=== PATIENT | female | born 1955 | race Two or more races ===

== ENCOUNTER → 2017-09-21 | Outpatient (CLI) | payer OTHER ==
[2017-09-21 07:48] LABS: Basophils # (auto) 0.1 uL; Basophils % (auto) 1.4 % (0.0-2.0); Eosinophils # (auto) 0.3 uL; Eosinophils % (auto) 6.5 % (0.0-7.0); Hematocrit 42.3 % (36.0-46.0); Hemoglobin 13.9 g/dL (12.2-16.2); Lymphocytes # (auto) 2.1 uL; Lymphocytes % (auto) 48.4 % (10.0-50.0); Mean Corpuscular Hemoglobin 28.5 pg (28.0-32.0); Mean Corpuscular Hgb Conc. 32.9 g/dL (32.0-36.0); Mean Corpuscular Volume 86.8 fL (80.0-100.0); Monocytes # (auto) 0.4 uL; Monocytes % (auto) 9.2 % (0.0-12.0); Neutrophils # (auto) 1.5 uL; Neutrophils % (auto) 34.5 % (37.0-80.0); Nucleated Red Blood Cells % 0.1 %; Platelet Count (auto) 286 10^3/uL (140-450); Red Blood Cells 4.88 10^6/uL (4.0-5.20); White Blood Cell 4.3 10^3/uL (4.4-10.8)
[2017-09-21 08:02] LABS: Albumin 3.6 g/dL (3.4-5.0); BUN/Creatinine Ratio 11.5; Bilirubin, Total 0.4 mg/dL (0.2-1.0); Calcium 8.8 mg/dL (8.5-10.1); Potassium 3.8 mmol/L (3.5-5.1); Total Protein 7.9 g/dL (6.4-8.2)
[2017-09-21 09:47] LABS: Urine Bacteria NONE SEEN /hpf (None Seen); Urine Blood TRACE /uL (Negative); Urine Mucus FEW (None Seen); Urine Specific Gravity 1.011 (1.001-1.035); Urine WBC 13 /hpf (0 - 5)
== END | disposition home or self-care (01) ==
LOC: LAB 07:21
PROVIDERS: ATTEND Family Medicine
DX: Z00.01 Encounter for general adult medical examination with abnormal findings (principal); F32.9 Major depressive disorder, single episode, unspecified; F41.9 Anxiety disorder, unspecified; R07.89 Other chest pain
CPT/HCPCS: 36415; 80053; 80061; 81001; 82306; 84443; 85025

== ENCOUNTER 2018-04-15 12:23 | Observation (INO) | payer OTHER ==
[~2018-04-15] VITALS: Ht 152.4 cm; Wt 68.0 kg
[2018-04-15 13:25] LABS: Basophils # (auto) 0.1 uL; Basophils % (auto) 0.5 % (0.0-2.0); Eosinophils # (auto) 0.2 uL; Eosinophils % (auto) 1.6 % (0.0-7.0); Hematocrit 41.4 % (36.0-46.0); Hemoglobin 13.3 g/dL (12.2-16.2); Lymphocytes # (auto) 1.7 uL; Lymphocytes % (auto) 13.8 % (10.0-50.0); Mean Corpuscular Hgb Conc. 32.1 g/dL (32.0-36.0); Mean Corpuscular Volume 87.2 fL (80.0-100.0); Monocytes # (auto) 0.5 uL; Monocytes % (auto) 4.4 % (0.0-12.0); Neutrophils # (auto) 9.7 uL; Neutrophils % (auto) 79.7 % (37.0-80.0); Platelet Count (auto) 314 10^3/uL (140-450); Red Blood Cells 4.75 10^6/uL (4.0-5.20); Red Cell Distribution Width 14.4 % (11.8-14.3); White Blood Cell 12.2 10^3/uL (4.4-10.8)
[2018-04-15 13:43] LABS: Alanine Aminotransferase 48 U/L (13-56); Albumin 3.4 g/dL (3.4-5.0); Anion Gap 9 (5-15); Aspartate Aminotransferase 53 U/L (15-37); BUN/Creatinine Ratio 14.9; Blood Urea Nitrogen 11 mg/dL (7-18); Calcium 8.1 mg/dL (8.5-10.1); Carbon Dioxide 27 mmol/L (21-32); Chloride 103 mmol/L (98-107); GFR African American 103 mL/min; GFR Non-African American 85 mL/min; Glucose 144 mg/dL (74-106); Magnesium 2.4 mg/dL (1.6-2.6); Potassium 4.3 mmol/L (3.5-5.1); Sodium 139 mmol/L (136-145)
[2018-04-15 13:47] LABS: Alkaline Phosphatase 107 U/L (45-117); Bilirubin, Total 0.3 mg/dL (0.2-1.0); Total Protein 7.5 g/dL (6.4-8.2)
[2018-04-15] MEDS ORDERED: SODIUM CHLORIDE 0.9% 1,000 ML IVB ONE (13:57)
[2018-04-15] MEDS ORDERED: KETOROLAC TROMETH 30 MG/ML 1ML VIAL IV ONE (14:00)
[2018-04-15] MEDS ORDERED: PROMETHAZINE HCL 25 MG/ML 1ML IV PRN (14:00)
[2018-04-15 17:11] LABS: Urine Bacteria MOD /hpf (None Seen); Urine Blood Negative /uL (Negative); Urine WBC 17 /hpf (0 - 5)
[2018-04-15] MEDS ORDERED: cefTRIAXone 1GM/10ml IVPUSH 10 ML IV ONE (18:45)
[2018-04-15] MEDS ORDERED: PANTOPRAZOLE 40 MG TAB PO ONE (18:45)
[2018-04-15 18:55] VITALS: BP 129/80
== END 2018-04-15 18:57 | disposition home or self-care (01) | DRG 690 ==
LOC: ER 12:23 → OVERFLOW 13:58 → ER 18:57
PROVIDERS: ADMIT Family Medicine; ATTEND Family Medicine
DX: N39.0 Urinary tract infection, site not specified (principal); K29.70 Gastritis, unspecified, without bleeding; F32.9 Major depressive disorder, single episode, unspecified
CPT/HCPCS: 36415; 74176; 80053; 81001; 83735; 84484; 85025; 93005; 96374; 96375; 99285; G0378; J0696; J1885; J2550

== ENCOUNTER 2018-09-20 11:46 | Inpatient (IN) | payer OTHER ==
[~2018-09-20] VITALS: Ht 144.8 cm; Wt 72.0 kg
[2018-09-20] MEDS ORDERED: SODIUM CHLORIDE 0.9% 500 ML IVB ONE (11:56)
[2018-09-20] MEDS ORDERED: PANTOPRAZOLE 40 MG/10 ML VIAL IV STA (11:56)
[2018-09-20] MEDS ORDERED: ONDANSETRON HCL 4 MG/2 ML VIAL IV ONE (12:00)
[2018-09-20] MEDS ORDERED: HYDROmorphone HCL 2 MG/ML VL IV ONE (12:00)
[2018-09-20 13:16] LABS: Basophils # (auto) 0 uL; Basophils % (auto) 0.3 % (0.0-2.0); Eosinophils # (auto) 0.1 uL; Eosinophils % (auto) 0.4 % (0.0-7.0); Hematocrit 40.8 % (36.0-46.0); Hemoglobin 13.8 g/dL (12.2-16.2); Lymphocytes # (auto) 0.7 uL; Lymphocytes % (auto) 5.2 % (10.0-50.0); Mean Corpuscular Hemoglobin 29.3 pg (28.0-32.0); Mean Corpuscular Hgb Conc. 33.9 g/dL (32.0-36.0); Mean Corpuscular Volume 86.3 fL (80.0-100.0); Monocytes # (auto) 0.4 uL; Monocytes % (auto) 2.9 % (0.0-12.0); Neutrophils # (auto) 11.9 uL; Neutrophils % (auto) 91.2 % (37.0-80.0); Nucleated Red Blood Cells % 0.1 %; Platelet Count (auto) 289 10^3/uL (140-450); Red Blood Cells 4.73 10^6/uL (4.0-5.20); Red Cell Distribution Width 14.2 % (11.8-14.3)
[2018-09-20 13:35] LABS: INR 0.99 (0.9-1.15); Partial Thromboplastin Time 25.6 sec (23.78-33.04); Prothrombin Time 10.6 sec (9.27-12.13)
[2018-09-20 13:36] LABS: Potassium 4.4 mmol/L (3.5-5.1)
[2018-09-20 13:42] LABS: Albumin 3.5 g/dL (3.4-5.0); BUN/Creatinine Ratio 16.7; Bilirubin, Total 0.4 mg/dL (0.2-1.0); Calcium 8.4 mg/dL (8.5-10.1); Total Protein 7.6 g/dL (6.4-8.2)
[2018-09-20] MEDS ORDERED: NITROGLYCERIN 0.4 MG SL TAB SL PRN (14:45)
[2018-09-20] MEDS ORDERED: MORPHINE SULFATE 4 MG/ML SYR/VIAL IV PRN ×2 (14:45→15:00)
[2018-09-20] MEDS: SODIUM CHLORIDE 0.9% 1,000 ML IV SCH ×2 (14:55→23:20)
[2018-09-20] MEDS ORDERED: ACETAMINOPHEN 500 MG TAB PO PRN (15:00)
[2018-09-20] MEDS ORDERED: LORazepam 0.5 MG TAB PO PRN (15:00)
[2018-09-20] MEDS ORDERED: DEXTROSE (50%) 50ML SYRG IV PRN (15:00)
[2018-09-20] MEDS ORDERED: traMADol HCL 50 MG TAB PO PRN (15:00)
[2018-09-20] MEDS ORDERED: cefTRIAXone 1GM/50ML D5W 50 ML IV ONE (15:00)
[2018-09-20] MEDS: FAMOTIDINE (10MG/ML) 2ML VL IV SCH ×2 (15:56→22:28)
[2018-09-20] MEDS: metroNIDAZOLE 500MG/100ML 100 ML IV SCH ×2 (19:01→23:18)
[2018-09-20] MEDS: ACCU-CHEK COMFORT CURVE STRIP VI SCH ×2 (19:01→23:24)
--- NOTE | 2018-09-20 20:10 | NUR ---
Telemetry admit from GILBERTO VAZQUEZKATHERIN admitted to Telemetry unit after SBAR received. Patient oriented to Allison restrepo RN, unit, room, bed, and unit policies regarding patient care and visiting hours. Patient now on continuous telemetry monitoring, tele box # HC 8 and telemetry reading on arrival to unit is SR72. Patient placed on bedside oxygen, weighed by bedscale and encouraged to call if they need something. Currently no c/o pain or any other discomfort, call light within reach. All questions and concerns addressed, patient verbalized understanding. cont care
[2018-09-20 20:59] VITALS: BP 136/81
[2018-09-20] MEDS ORDERED: DULO60CA90 PO (21:35)
[2018-09-20] MEDS ORDERED: ZOLP5TAB5 PO (21:35)
[2018-09-20] MEDS ORDERED: OMEP20TA PO (21:35)
[2018-09-20] MEDS ORDERED: ALPR0.254 PO (21:35)
[2018-09-20] MEDS ORDERED: QUET100T46 PO (21:35)
[2018-09-20 22:00] VITALS: BP 136/81
--- NOTE | 2018-09-20 23:24 | NUR ---
BS 97
--- NOTE | 2018-09-21 03:30 | NUR ---
PT CARE ENDORSED TO KEVIN PT CURRENTLY SLEEPING, SLEEPING, BREATHING EVEN AND UNLABORED, NO DISTRESS NOTED
--- NOTE | 2018-09-21 03:33 | NUR ---
Opening Shift Note Assumed care of patient, awake and alert. No S/S of distress/SOB or pain. Instructed on POC and to call for assist PRN, will continue to monitor for changes Q1hr and PRN.
[2018-09-21] MEDS: SODIUM CHLORIDE 0.9% 1,000 ML IV SCH (04:40)
[2018-09-21] MEDS: ACCU-CHEK COMFORT CURVE STRIP VI SCH ×2 (05:58→11:52)
[2018-09-21] MEDS: metroNIDAZOLE 500MG/100ML 100 ML IV SCH ×4 (05:58→23:56)
[2018-09-21 06:16] VITALS: BP 131/70
[2018-09-21 06:21] LABS: Basophils # (auto) 0.1 uL; Basophils % (auto) 1.3 % (0.0-2.0); Eosinophils # (auto) 0.2 uL; Eosinophils % (auto) 4.4 % (0.0-7.0); Hematocrit 39.4 % (36.0-46.0); Hemoglobin 13.2 g/dL (12.2-16.2); Lymphocytes # (auto) 1.3 uL; Lymphocytes % (auto) 24.2 % (10.0-50.0); Mean Corpuscular Hemoglobin 28.8 pg (28.0-32.0); Mean Corpuscular Hgb Conc. 33.4 g/dL (32.0-36.0); Mean Corpuscular Volume 86.1 fL (80.0-100.0); Monocytes # (auto) 0.5 uL; Monocytes % (auto) 8.2 % (0.0-12.0); Neutrophils # (auto) 3.4 uL; Neutrophils % (auto) 61.9 % (37.0-80.0); Nucleated Red Blood Cells % 0.1 %; Platelet Count (auto) 269 10^3/uL (140-450); Red Blood Cells 4.57 10^6/uL (4.0-5.20); Red Cell Distribution Width 13.7 % (11.8-14.3); White Blood Cell 5.5 10^3/uL (4.4-10.8)
[2018-09-21 06:40] LABS: Potassium 3.6 mmol/L (3.5-5.1)
[2018-09-21 06:48] LABS: Albumin 3.1 g/dL (3.4-5.0); BUN/Creatinine Ratio 13.8; Bilirubin, Total 0.3 mg/dL (0.2-1.0); Calcium 7.9 mg/dL (8.5-10.1); Total Protein 6.9 g/dL (6.4-8.2)
[2018-09-21] MEDS: PROMETHAZINE HCL 25 MG/ML 1ML IV PRN ×3 (06:59→18:59)
[2018-09-21 08:00] VITALS: BP 131/70
[2018-09-21] MEDS: cefTRIAXone 1GM/50ML D5W 50 ML IV SCH (08:16)
[2018-09-21 09:00] VITALS: BP 130/68
--- NOTE | 2018-09-21 09:10 | NUR ---
patient off floor for hyda scan
[2018-09-21] MEDS: FAMOTIDINE (10MG/ML) 2ML VL IV SCH ×2 (10:00→23:56)
[2018-09-21] MEDS ORDERED: INFLUENZA QUAD 2018-2019 0.5 ML SYRG IM ONE (12:45)
[2018-09-21] MEDS ORDERED: PNEUMOCOCCAL VACC POLYS 25 MCG/0.5 ML VIAL IM ONE (12:45)
[2018-09-21] MEDS ORDERED: PANT40TA2 PO (12:52)
[2018-09-21] MEDS ORDERED: METR500T14 PO (12:52)
[2018-09-21] MEDS ORDERED: CEPH-37 PO (12:52)
[2018-09-21 13:00] VITALS: BP 135/61
[2018-09-21] MEDS ORDERED: ALPRAZolam 0.5 MG TAB PO PRN (15:00)
[2018-09-21 16:16] VITALS: BP 124/63
[2018-09-21 17:25] LABS: Urine Bacteria NONE SEEN /hpf (None Seen); Urine Blood Negative /uL (Negative); Urine Specific Gravity 1.014 (1.001-1.035); Urine WBC 1 /hpf (0 - 5)
--- NOTE | 2018-09-21 18:40 | NUR ---
TWO UNSUCCESSFUL ATTEMPTS FOR IV PATIENT NEEDS 20 G FOR CARDIOLITE STRESS TEST WILL ENDORSE TO JESUS ALBERTO PARKS.
--- NOTE | 2018-09-21 19:35 | NUR ---
Opening Shift Note Assumed care of patient, awake and alert x4. Family at bedside. No S/S of distress/SOB or pain. Reports decreased nausea after Phenergan administration by dayscresencioft RN. Through licensed massage therapist, instructed on POC and to call for assist PRN, will continue to monitor for changes Q1hr and PRN. Bed in lowest locked position, side rails up x2, call light within reach.
[2018-09-21 22:00] VITALS: BP 139/75
[2018-09-21] MEDS: QUEtiapine FUMARATE 100 MG TAB PO SCH (23:56)
[2018-09-21] MEDS: ATORVASTATIN 20 MG TAB PO SCH (23:56)
--- NOTE | 2018-09-22 01:30 | NUR ---
IV insertion IV access obtained, via clean sterile technique by inserting 20 gauge catheter at left ac after two attempts. IV secured properly. No trauma to site. Patient tolerated well. 20 gauge to right ac remains clean, dry, intact, and patent. Will continue to monitor.
[2018-09-22 04:55] VITALS: BP 139/70
[2018-09-22 06:15] LABS: Basophils # (auto) 0 uL; Basophils % (auto) 1.1 % (0.0-2.0); Eosinophils # (auto) 0.2 uL; Eosinophils % (auto) 4.4 % (0.0-7.0); Hematocrit 39.4 % (36.0-46.0); Hemoglobin 13.3 g/dL (12.2-16.2); Lymphocytes # (auto) 1.6 uL; Lymphocytes % (auto) 37.1 % (10.0-50.0); Mean Corpuscular Hemoglobin 28.8 pg (28.0-32.0); Mean Corpuscular Hgb Conc. 33.6 g/dL (32.0-36.0); Mean Corpuscular Volume 85.7 fL (80.0-100.0); Monocytes # (auto) 0.4 uL; Monocytes % (auto) 8.6 % (0.0-12.0); Neutrophils # (auto) 2.2 uL; Neutrophils % (auto) 48.8 % (37.0-80.0); Nucleated Red Blood Cells % 0.1 %; Platelet Count (auto) 271 10^3/uL (140-450); Red Cell Distribution Width 14.1 % (11.8-14.3); White Blood Cell 4.5 10^3/uL (4.4-10.8)
[2018-09-22 06:17] LABS: Albumin 3.2 g/dL (3.4-5.0); Calcium 8.1 mg/dL (8.5-10.1); Potassium 3.4 mmol/L (3.5-5.1)
[2018-09-22 06:21] LABS: BUN/Creatinine Ratio 14.9; Bilirubin, Total 0.4 mg/dL (0.2-1.0); Total Protein 6.9 g/dL (6.4-8.2)
--- NOTE | 2018-09-22 06:50 | NUR ---
Closing Note Patient lying in bed, eyes closed, respirations even and unlabored, appears asleep. No s/s of distress. Care endorsed to dayshift RN.
[2018-09-22] MEDS: metroNIDAZOLE 500MG/100ML 100 ML IV SCH ×3 (07:04→17:22)
[2018-09-22] MEDS ORDERED: POTASSIUM CHL 20 Meq TABLET PO ONE (07:45)
[2018-09-22 09:39] VITALS: BP 150/74
[2018-09-22] MEDS: cefTRIAXone 1GM/50ML D5W 50 ML IV SCH (09:43)
[2018-09-22] MEDS: FAMOTIDINE (10MG/ML) 2ML VL IV SCH ×2 (09:44→21:56)
[2018-09-22] MEDS: HYDROcodone-ACET 5/325MG TAB PO PRN ×2 (12:11→17:22)
[2018-09-22 13:00] VITALS: BP 141/63
[2018-09-22] MEDS: guaiFENesin-DM 100/10mg/5ml SYR PO PRN (14:45)
[2018-09-22 17:55] VITALS: BP 132/71
--- NOTE | 2018-09-22 19:30 | NUR ---
Opening Shift Note Assumed care of patient, awake and alert x4. Family at bedside. No S/S of distress/SOB or pain. Through sample carrier, instructed on POC and to call for assist PRN, will continue to monitor for changes Q1hr and PRN. Bed in lowest locked position, side rails up x2, call light within reach.
[2018-09-22 21:39] VITALS: BP 125/66
[2018-09-22] MEDS: TEMAZEPAM 15 MG CAP PO PRN (21:56)
[2018-09-22] MEDS: QUEtiapine FUMARATE 100 MG TAB PO SCH (21:56)
[2018-09-22] MEDS: ATORVASTATIN 20 MG TAB PO SCH (21:56)
[2018-09-23] MEDS: metroNIDAZOLE 500MG/100ML 100 ML IV SCH ×5 (00:20→23:15)
[2018-09-23 04:55] VITALS: BP 112/69
--- NOTE | 2018-09-23 07:27 | NUR ---
Closing Note Patient lying in bed, eyes closed, respirations even and unlabored, appears asleep. No s/s of distress. Care endorsed to dayshift RN.
[2018-09-23 09:00] VITALS: BP 130/67
[2018-09-23] MEDS: FAMOTIDINE (10MG/ML) 2ML VL IV SCH ×2 (10:33→21:21)
[2018-09-23] MEDS: cefTRIAXone 1GM/50ML D5W 50 ML IV SCH (10:36)
[2018-09-23 13:00] VITALS: BP 136/83
[2018-09-23 18:12] VITALS: BP 139/80
--- NOTE | 2018-09-23 19:20 | NUR ---
Opening Shift Note Assumed care of patient, awake and alert x4. Family at bedside. No S/S of distress/SOB or pain. Through aeronautical engineer, instructed on POC and to call for assist PRN, will continue to monitor for changes Q1hr and PRN. Bed in lowest locked position, side rails up x2, call light within reach.
[2018-09-23] MEDS: ATORVASTATIN 20 MG TAB PO SCH (21:23)
[2018-09-23] MEDS: QUEtiapine FUMARATE 100 MG TAB PO SCH (21:23)
[2018-09-23 22:00] VITALS: BP 125/68
[2018-09-23] MEDS: TEMAZEPAM 15 MG CAP PO PRN (23:15)
[2018-09-24 04:56] VITALS: BP 125/68
[2018-09-24] MEDS: metroNIDAZOLE 500MG/100ML 100 ML IV SCH (05:54)
--- NOTE | 2018-09-24 07:25 | NUR ---
Closing Note Patient lying in bed, eyes closed, respirations even and unlabored, appears asleep. No s/s of distress. Care endorsed to dayshift RN.
[2018-09-24] MEDS ORDERED: ADENOSINE 60 MG in GIVE UN-DILUTED 0 ML IV STA (08:26)
[2018-09-24 09:00] VITALS: BP 133/77
--- NOTE | 2018-09-24 09:10 | NUR ---
patient off floor for stress test
[2018-09-24 09:24] VITALS: BP 150/77
[2018-09-24] MEDS ORDERED: DULoxetine HCL 30 MG CAP PO SCH (10:00)
[2018-09-24] MEDS: FAMOTIDINE (10MG/ML) 2ML VL IV SCH (10:30)
[2018-09-24] MEDS: cefTRIAXone 1GM/50ML D5W 50 ML IV SCH (10:31)
[2018-09-24] MEDS ORDERED: ASPI81CH43 PO (11:48)
[2018-09-24] MEDS ORDERED: ATOR20TA50 PO (11:48)
[2018-09-24] MEDS ORDERED: ATEN-60 PO (11:49)
[2018-09-24] MEDS: guaiFENesin-DM 100/10mg/5ml SYR PO PRN (12:40)
[2018-09-24 13:00] VITALS: BP 138/76
--- NOTE | 2018-09-24 16:50 | NUR ---
DR. OJEDA GAVE CARDIO CLEARANCE FOR DISCHARGE.
[2018-09-24 17:00] VITALS: BP 143/69
--- NOTE | 2018-09-24 17:59 | NUR ---
Discharge instructions given as ordered. Encourage to follow up with PMD as instructed. All questions and concerns addressed. Patient verbalized understanding. Medication reconciliation form completed and copy given to patient. Home medications held in Pharmacy returned to patient. IV removed with catheter intact, pressure dressing applied. Telemetry unit returned to ICU. Patient taken to vehicle via wheelchair with all personal belongings, accompanied by staff and family member. No distress noted at time of departure.
== END 2018-09-24 17:59 | disposition home or self-care (01) | DRG 446 ==
LOC: ER 11:48 → TELE 14:46 → TELE-WESTW 20:10
PROVIDERS: ADMIT Internal Medicine; ATTEND Internal Medicine
DX: K80.20 Calculus of gallbladder without cholecystitis without obstruction (principal); E78.5 Hyperlipidemia, unspecified; F20.9 Schizophrenia, unspecified; F32.9 Major depressive disorder, single episode, unspecified; F41.9 Anxiety disorder, unspecified; H91.90 Unspecified hearing loss, unspecified ear; I10 Essential (primary) hypertension; I25.10 Atherosclerotic heart disease of native coronary artery without angina pectoris; Z23 Encounter for immunization; Z87.440 Personal history of urinary (tract) infections
CPT/HCPCS: 36415; 71045; 74176; 76705; 78226; 78452; 80053; 80061; 81001; 82150; 82550; 82962; 83036; 83690; 84443; 84484; 85025; 85379; 85610; 85652; 85730; 86141; 87086; 93005; 93017; 93306; 94761; 96361; 96365; 96375; C9113; G0378; J0153; J0696; J2405; J3490

== ENCOUNTER → 2018-12-19 | Day surgery (SDC) | payer OTHER ==
[2018-12-17 11:51] LABS: Basophils # (auto) 0.1 uL; Basophils % (auto) 1.2 % (0.0-2.0); Eosinophils # (auto) 0.1 uL; Eosinophils % (auto) 2.8 % (0.0-7.0); Hematocrit 40.1 % (36.0-46.0); Hemoglobin 13.5 g/dL (12.2-16.2); Lymphocytes # (auto) 1.4 uL; Lymphocytes % (auto) 29.7 % (10.0-50.0); Mean Corpuscular Hemoglobin 29.5 pg (28.0-32.0); Mean Corpuscular Hgb Conc. 33.7 g/dL (32.0-36.0); Mean Corpuscular Volume 87.3 fL (80.0-100.0); Monocytes # (auto) 0.4 uL; Monocytes % (auto) 7.8 % (0.0-12.0); Neutrophils # (auto) 2.8 uL; Neutrophils % (auto) 58.5 % (37.0-80.0); Platelet Count (auto) 269 10^3/uL (140-450); Red Cell Distribution Width 14.3 % (11.8-14.3); White Blood Cell 4.8 10^3/uL (4.4-10.8)
[2018-12-17 12:05] LABS: INR 0.98 (0.9-1.15); Partial Thromboplastin Time 29.3 sec (23.78-33.04); Prothrombin Time 10.5 sec (9.27-12.13)
[2018-12-17 12:40] LABS: Potassium 4.2 mmol/L (3.5-5.1)
[2018-12-17 12:48] LABS: Urine Bacteria NONE SEEN /hpf (None Seen); Urine Blood TRACE /uL (Negative); Urine Specific Gravity 1.005 (1.001-1.035); Urine WBC 2 /hpf (0 - 5)
[2018-12-17 12:52] LABS: Albumin 3.4 g/dL (3.4-5.0); BUN/Creatinine Ratio 21.1; Bilirubin, Total 0.3 mg/dL (0.2-1.0); Calcium 8.9 mg/dL (8.5-10.1); Total Protein 7.5 g/dL (6.4-8.2)
[~2018-12-19] VITALS: Ht 149.9 cm; Wt 68.9 kg
[~2018-12-19] MED LIST: ALPR0.254 PO; ASPI81CH43 PO; ATEN-60 PO; ATOR20TA50 PO; DULO60CA90 PO; DexAMETHasone SOD PHOS 10MG/1ML VIAL INJ ONE; GLYCOPYRROLATE 0.2 MG/ML 1ML VIAL ONE; HYDROmorphone HCL 2 MG/ML VL IV PRN; KETOROLAC TROMETH 30 MG/ML 1ML VIAL IV ONE; KETOROLAC TROMETH 30 MG/ML 1ML VIAL ONE; LABETALOL HCL 5 MG/ML 4ML SYRINGE IV PRN; MEPERIDINE HCL (25 MG/ML) 1ML VIAL ONE; MIDAZOLAM HCL 1MG/1ML-2 ML VIAL IV PRN; MIDAZOLAM HCL 1MG/1ML-2 ML VIAL ONE; MORPHINE SULFATE 4 MG/ML SYR/VIAL IV ONE; MORPHINE SULFATE 4 MG/ML SYR/VIAL IV PRN; NEOSTIGMINE 1 MG/ML INJ (10mg/10ML VIAL) ONE; OMEP20TA PO; ONDANSETRON HCL 4 MG/2 ML VIAL IV ONE; ONDANSETRON HCL 4 MG/2 ML VIAL ONE; PANT40TA2 PO; POVIDONE IODINE 10 % TOPICAL OINT 30GM TOP ONE; PROPOFOL 10 MG/ML 20 ML IV ONE; QUET100T46 PO; ROCURONIUM 10MG/ML 10ML VIAL IV ONE; SUCCINYLCHOLINE CHLORIDE 20 MG/ML 10ML VIAL IV ONE; ZOLP5TAB5 PO; ceFAZolin 1GM/50ML 50 ML IV ONE; ePHEDrine SULFATE 50 MG/ML AMP IV PRN; fentaNYL CITRATE 100 MCG/2 ML VL ONE; hydrALAZINE HCL 20 MG/ML VL IV PRN
[2018-12-19 13:42] VITALS: BP 119/65
== END | disposition home or self-care (01) ==
LOC: SUR 08:50
PROVIDERS: ATTEND Surgery
DX: K80.10 Calculus of gallbladder with chronic cholecystitis without obstruction (principal); E66.9 Obesity, unspecified; F32.9 Major depressive disorder, single episode, unspecified; F41.9 Anxiety disorder, unspecified; F20.9 Schizophrenia, unspecified; K21.9 Gastro-esophageal reflux disease without esophagitis; I10 Essential (primary) hypertension
CPT/HCPCS: 36415; 47562; 80053; 81001; 85025; 85610; 85730; 86850; 86900; 86901; J0330; J0690; J1100; J1170; J1885; J2175; J2250; J2405; J2704; J3010; A6257

== ENCOUNTER → 2019-10-04 | Outpatient (CLI) | payer OTHER ==
[~2019-10-04] MED LIST changes: -DexAMETHasone SOD PHOS 10MG/1ML VIAL INJ ONE; -GLYCOPYRROLATE 0.2 MG/ML 1ML VIAL ONE; -HYDROmorphone HCL 2 MG/ML VL IV PRN; -KETOROLAC TROMETH 30 MG/ML 1ML VIAL IV ONE; -KETOROLAC TROMETH 30 MG/ML 1ML VIAL ONE; -LABETALOL HCL 5 MG/ML 4ML SYRINGE IV PRN; -MEPERIDINE HCL (25 MG/ML) 1ML VIAL ONE; -MIDAZOLAM HCL 1MG/1ML-2 ML VIAL IV PRN; -MIDAZOLAM HCL 1MG/1ML-2 ML VIAL ONE; -MORPHINE SULFATE 4 MG/ML SYR/VIAL IV ONE; -MORPHINE SULFATE 4 MG/ML SYR/VIAL IV PRN; -NEOSTIGMINE 1 MG/ML INJ (10mg/10ML VIAL) ONE; -ONDANSETRON HCL 4 MG/2 ML VIAL IV ONE; -ONDANSETRON HCL 4 MG/2 ML VIAL ONE; -POVIDONE IODINE 10 % TOPICAL OINT 30GM TOP ONE; -PROPOFOL 10 MG/ML 20 ML IV ONE; -ROCURONIUM 10MG/ML 10ML VIAL IV ONE; -SUCCINYLCHOLINE CHLORIDE 20 MG/ML 10ML VIAL IV ONE; -ceFAZolin 1GM/50ML 50 ML IV ONE; -ePHEDrine SULFATE 50 MG/ML AMP IV PRN; -fentaNYL CITRATE 100 MCG/2 ML VL ONE; -hydrALAZINE HCL 20 MG/ML VL IV PRN
[2019-10-04 10:32] LABS: Urine WBC None Seen /hpf (0 - 5)
[2019-10-04 10:44] LABS: Basophils # (auto) 0.1 uL; Basophils % (auto) 1.5 % (0.0-2.0); Eosinophils # (auto) 0.3 uL; Eosinophils % (auto) 6.9 % (0.0-7.0); Hematocrit 43.2 % (36.0-46.0); Hemoglobin 14.4 g/dL (12.2-16.2); Lymphocytes # (auto) 1.5 uL; Lymphocytes % (auto) 36.6 % (10.0-50.0); Mean Corpuscular Hemoglobin 29.4 pg (28.0-32.0); Mean Corpuscular Hgb Conc. 33.5 g/dL (32.0-36.0); Mean Corpuscular Volume 87.9 fL (80.0-100.0); Monocytes # (auto) 0.4 uL; Monocytes % (auto) 9.2 % (0.0-12.0); Neutrophils # (auto) 1.9 uL; Neutrophils % (auto) 45.8 % (37.0-80.0); Platelet Count (auto) 285 10^3/uL (140-450); Red Blood Cells 4.91 10^6/uL (4.0-5.20); White Blood Cell 4.1 10^3/uL (4.4-10.8)
[2019-10-04 11:01] LABS: Urine Bacteria NONE SEEN /hpf (None Seen); Urine Blood Negative /uL (Negative); Urine Specific Gravity 1.002 (1.001-1.035)
[2019-10-04 11:34] LABS: Albumin 3.8 g/dL (3.4-5.0); Potassium 3.8 mmol/L (3.5-5.1)
[2019-10-04 11:40] LABS: BUN/Creatinine Ratio 14.1; Bilirubin, Total 0.6 mg/dL (0.2-1.0); Calcium 8.9 mg/dL (8.5-10.1); Total Protein 7.9 g/dL (6.4-8.2)
== END | disposition home or self-care (01) ==
LOC: LAB 10:10
PROVIDERS: ATTEND Family Medicine
DX: E78.00 Pure hypercholesterolemia, unspecified (principal); R53.83 Other fatigue; K21.9 Gastro-esophageal reflux disease without esophagitis; F32.9 Major depressive disorder, single episode, unspecified
CPT/HCPCS: 36415; 80053; 80061; 81001; 82306; 82607; 84443; 85025

== ENCOUNTER → 2020-12-14 | Outpatient (CLI) | payer BC | END | disposition home or self-care (01) | LOC: LAB 09:40 | PROVIDERS: ATTEND Student in an Organized Health Care Education/Training Program | DX: Z12.11 Encounter for screening for malignant neoplasm of colon (principal) | CPT/HCPCS: 82274 ==